=== PATIENT | male | born 1975 | race African-American/Black ===

== ENCOUNTER 2018-09-04 09:34 | Emergency (ER) | payer OTHER ==
[~2018-09-04] VITALS: Ht 182.9 cm; Wt 94.3 kg
[2018-09-04] MEDS ORDERED: NORCO 5-325 TA1 EACH ORAL (10:09)
[2018-09-04] MEDS ORDERED: CYCLOBENZAPRINE10 MG ORAL (10:09)
[2018-09-04] MEDS ORDERED: IBUPROFEN600 MG ORAL (10:09)
[2018-09-04 10:14] VITALS: BP 142/92
[2018-09-04 10:16] VITALS: BP 142/92
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
== END 2018-09-04 10:18 | disposition home or self-care (01) ==
LOC: EMR 10:15
DX: S86.912A Strain of unspecified muscle(s) and tendon(s) at lower leg level, left leg, initial encounter (principal); V43.52XA Car driver injured in collision with other type car in traffic accident, initial encounter; Y92.410 Unspecified street and highway as the place of occurrence of the external cause
CPT/HCPCS: 99282

== ENCOUNTER 2018-09-15 19:43 | Emergency (ER) | payer OTHER ==
[~2018-09-15] VITALS: Ht 182.9 cm; Wt 94.3 kg
[~2018-09-15 19:43] MED LIST: CYCLOBENZAPRINE10 MG ORAL; IBUPROFEN600 MG ORAL; NORCO 5-325 TA1 EACH ORAL
[2018-09-15 20:25] VITALS: BP 127/90
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
[2018-09-15] MEDS ORDERED: Ketorolac 30mg Inj IM ONE (21:00)
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
[2018-09-15] MEDS ORDERED: ROBAXIN500 MG PO (21:39)
[2018-09-15] MEDS ORDERED: TRAMADOL HCL50 MG ORAL (21:39)
[2018-09-15 21:45] VITALS: BP 122/88
--- NOTE | 2018-09-15 21:45 | NUR ---
ED Nurse Note: Pt cleared DC by CECIL Vizcarra. Pt is A/Ox4, VSS, DC instruction and prescriptions given, pt verbalized understanding. ID wristband removed. All belongings given to pt. Pt ambulated out of ER with steady gait.
== END 2018-09-15 21:45 | disposition home or self-care (01) ==
LOC: EMR 21:08
DX: S39.012A Strain of muscle, fascia and tendon of lower back, initial encounter (principal); X58.XXXA Exposure to other specified factors, initial encounter; Y92.9 Unspecified place or not applicable; Z88.0 Allergy status to penicillin
CPT/HCPCS: 72020; 96372; 99283; J1885

== ENCOUNTER 2019-03-04 08:57 | Emergency (ER) | payer OTHER ==
[~2019-03-04] VITALS: Ht 182.9 cm; Wt 95.7 kg
[~2019-03-04 08:57] MED LIST changes: +ROBAXIN500 MG PO; +TRAMADOL HCL50 MG ORAL
[2019-03-04 08:59] VITALS: BP 154/101
[2019-03-04] MEDS ORDERED: NKM (09:03)
--- NOTE | 2019-03-04 09:09 | NUR ---
ED Nurse Note: Patient walked into ED c/o blood in the urine since this morning. patient is alert awake x4 ambulatory, breathing unlabored and even.
--- NOTE | 2019-03-04 09:17 | NUR ---
ED Nurse Note: UA SENT TO LAB
[2019-03-04 09:40] LABS: APPEARANCE,URINE CLEAR; BILIRUBIN, URINE NEGATIVE (NEGATIVE); GLUCOSE, URINE (UA) NEGATIVE (NEGATIVE); KETONES,URINE 1+ (NEGATIVE); LEUKOCYTE ESTERASE ,URINE 1+ (NEGATIVE); NITRITE,URINE NEGATIVE (NEGATIVE); PH,URINE 6 (4.5-8.0); PROTEIN,URINE 1+ (NEGATIVE); UROBILINOGEN,URINE 4 MG/DL (0.0-1.0)
[2019-03-04 09:45] LABS: COLOR,URINE YELLOW
--- NOTE | 2019-03-04 10:03 | Emergency Room Report ---
History of Present Illness General Chief Complaint: Male Urogenital Problems Source: Patient Present Illness [facility] Patient 43-year-old male presents after increased hematuria noticed this morning. Patient reports having some mild suprapubic pain. He denies any dysuria. He did not have any fever. He had not been vomiting. He denies any recent trauma. He denies any flank pain. Patient states that he is a smoker. He denies any prior history of hematuria in the past. Allergies: Coded Allergies: AMPICILLIN (Verified Allergy, Unknown, 09/15/18) Patient History Past Medical History: see triage record Reviewed Nursing Documentation: PMH: Agreed; PSxH: Agreed Nursing Documentation-PMH Past Medical History: No Stated History Review of Systems All Other Systems: negative except mentioned in HPI Physical Exam Vital Signs Date Time Temp Pulse Resp B/P (MAP) Pulse Ox O2 Delivery O2 Flow Rate FiO2 03/04/19 08:59 98.4 71 18 154/101 (118) 97 Room Air Sp02 EP Interpretation: reviewed, normal General Appearance: normal inspection, well appearing, no apparent distress, alert, GCS 15 Head: atraumatic ENT: normal ENT inspection, hearing grossly normal, normal voice Neck: normal inspection, full range of motion, supple, no bony tend Respiratory: normal inspection, lungs clear, normal breath sounds, no respiratory distress, no retraction, no wheezing Cardiovascular #1: regular rate, rhythm, no edema Gastrointestinal: normal inspection, normal bowel sounds, non tender, soft, no guarding, no hernia Genitourinary: no CVA tenderness Musculoskeletal: normal inspection, back normal, normal range of motion Neurologic: normal inspection, alert, oriented x3, responsive, patient observation assistant III-XII nml as tested, speech normal Psychiatric: normal inspection, judgement/insight normal, mood/affect normal Medical Decision Making Diagnostic Impression: Primary Impression: Hematuria Last Vital Signs Date Time Temp Pulse Resp B/P (MAP) Pulse Ox O2 Delivery O2 Flow Rate FiO2 03/04/19 08:59 98.4 71 18 154/101 97 Room Air Referrals: CHRISTY BUTLER,REFERRING (PCP) Miguel Vasquez MD Mar 04, 2019 10:03
[2019-03-04] MEDS ORDERED: Bactrim-DS 1 tab ORAL ONE (10:15)
--- NOTE | 2019-03-04 11:57 | Diagnostic Imaging Report ---
Indication: Hematuria, suprapubic pain Technique: Spiral acquisitions obtained through the abdomen and pelvis. No oral contrast utilized, per emergency room physician request No IV contrast utilized, per referring physician request.. Multiplanar reconstructions were generated. Total dose length product 944.38 mGycm. CTDIvol(s) 17.25 mGy. Dose reduction achieved using automated exposure control Comparison: None Findings: Lack of IV contrast limits assessment of the renal parenchyma. 5.3 cm cyst comes off of the upper pole of the left kidney. No gross renal parenchymal mass or cyst elsewhere. No renal or ureteral calculi, hydronephrosis, or hydroureter demonstrated. The bladder is unremarkable. Lack of IV contrast limits assessment of the other solid organs. The gallbladder contains a stone within the neck. No biliary ductal dilatation. The liver is grossly unremarkable. The pancreas, spleen, adrenals are all unremarkable. No retroperitoneal or mesenteric mass or adenopathy. No pelvic mass or adenopathy. Lack of enteric contrast limits assessment of the GI tract. There are scattered colonic diverticula. No evidence of diverticulitis. The appendix is normal. No small bowel distention. No free or loculated intraperitoneal gas or fluid is evident. Included lung bases are clear. The bones are unremarkable. Impression: No acute abnormality No findings to explain stated clinical history of hematuria and suprapubic pain demonstrated. Colonic diverticulosis coli diverticulosis. No evidence of diverticulitis Cholelithiasis Incidental finding left upper pole renal cyst The CT scanner at [facility] is accredited by the [employer] and the scans are performed using protocols designed to limit radiation exposure to as low as reasonably achievable to attain images of sufficient resolution adequate for diagnostic evaluation.
[2019-03-04] MEDS ORDERED: BACTRIM DS TAB1 EAC1 ORAL (12:44)
[2019-03-04 12:55] VITALS: BP 154/101
--- NOTE | 2019-03-04 12:56 | NUR ---
ER DISCHARGE NOTE: Patient is cleared to be discharged per ERMD DR CARDOZO, pt is aox4, on room air, with stable vital signs. pt was given dc and prescription instructions, pt was able to verbalize understanding, pt id band removed without complications. pt is able to ambulate with steady gait. pt took all belongings.
== END 2019-03-04 12:55 | disposition home or self-care (01) ==
LOC: EMR 09:26
DX: R31.9 Hematuria, unspecified (principal); Z88.0 Allergy status to penicillin
CPT/HCPCS: 74176; 81003; 99284

== ENCOUNTER 2019-03-14 19:04 | Emergency (ER) | payer OTHER ==
[~2019-03-14] VITALS: Ht 182.9 cm; Wt 94.8 kg
[~2019-03-14 19:04] MED LIST changes: +BACTRIM DS TAB1 EAC1 ORAL; +NKM
--- NOTE | 2019-03-14 19:18 | NUR ---
ED Nurse Note: Walk-in patient presents with complaints of gross hematuria. Currently reports no pain.
--- NOTE | 2019-03-14 19:26 | Emergency Room Report ---
History of Present Illness General Chief Complaint: Male Urogenital Problems Source: Patient Present Illness HPI Patient presents with complaints of evidence of passing blood clot while urinating This happened just prior to arrival Denies any pain or discomfort denies any flank pain Denies any fevers or chills denies any chest pain or shortness of breath Patient was here recently had CT imaging which did not show any obvious acute pathology urine sample has shown a small amount of blood Patient has not had a chance to follow-up as outpatient yet Denies any trauma to the region Patient is sexually active with one partner denies any dysuria or frequency denies any other discharge denies any testicular pain Allergies: Coded Allergies: AMPICILLIN (Verified Allergy, Unknown, 09/15/18) Patient History Past Medical History: see triage record Reviewed Nursing Documentation: PMH: Agreed; PSxH: Agreed Nursing Documentation-PMH Past Medical History: No Stated History Review of Systems All Other Systems: negative except mentioned in HPI Physical Exam Vital Signs Date Time Temp Pulse Resp B/P (MAP) Pulse Ox O2 Delivery O2 Flow Rate FiO2 03/14/19 19:10 98.2 71 14 159/90 (113) 95 Room Air Sp02 EP Interpretation: reviewed, normal General Appearance: well appearing, no apparent distress Head: normocephalic, atraumatic Eyes: bilateral eye PERRL, bilateral eye EOMI ENT: hearing grossly normal, normal pharynx, TMs + canals normal, uvula midline Neck: full range of motion, supple, no meningismus, no bony tend Respiratory: lungs clear, normal breath sounds, no rhonchi, no respiratory distress, no retraction, no accessory muscle use Cardiovascular #1: normal peripheral pulses, regular rate, rhythm, no edema, no gallop, no JVD, no murmur Gastrointestinal: normal bowel sounds, non tender, soft, no mass, no organomegaly, non-distended, no guarding, no hernia, no pulsatile mass, no rebound Genitourinary: no CVA tenderness Musculoskeletal: normal inspection Neurologic: oriented x3, responsive, 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 nml as tested, motor strength/ tone normal, sensory intact Psychiatric: mood/affect normal Skin: no rash Lymphatic: normal inspection, no adenopathy Medical Decision Making Diagnostic Impression: Primary Impression: Hematuria ER Course Given the patient's history presentation exam multiple differentials and consideration including but not limited to kidney stone, bladder cancer, renal mass Patient's previous visit is reviewed and CT imaging was obtained previously On this visit blood work is evaluated Patient is able to urinate denies any pressure or discomfort denies any discharge He reports clearing of the urine of blood in between episodes and denies any difficulty urinating at this time Blood work is appropriate patient's previous CT imaging did not show any obvious acute pathology Patient's next step in evaluation would best be with urology follow-up and likely cystoscopy for further evaluation I discussed the importance of this with the patient if he has any other discomfort difficulty urinating Or any other complaints he will return to the ER more emergently otherwise requires urgent close follow-up he was provided a copy of his blood work and CT imaging and will follow closely Labs Test 03/14/19 19:25 White Blood Count 7.7 K/UL (4.8-10.8) Red Blood Count 4.54 M/UL (4.70-6.10) Hemoglobin 12.9 G/DL (14.2-18.0) Hematocrit 38.0 % (42.0-52.0) Mean Corpuscular Volume 84 FL (80-99) Mean Corpuscular Hemoglobin 28.3 PG (27.0-31.0) Mean Corpuscular Hemoglobin Concent 33.8 G/DL (32.0-36.0) Red Cell Distribution Width 12.8 % (11.6-14.8) Platelet Count 335 K/UL (150-450) Mean Platelet Volume 4.6 FL (6.5-10.1) Neutrophils (%) (Auto) 42.6 % (45.0-75.0) Lymphocytes (%) (Auto) 44.5 % (20.0-45.0) Monocytes (%) (Auto) 8.9 % (1.0-10.0) Eosinophils (%) (Auto) 1.8 % (0.0-3.0) Basophils (%) (Auto) 2.2 % (0.0-2.0) Sodium Level 142 MMOL/L (136-145) Potassium Level 3.6 MMOL/L (3.5-5.1) Chloride Level 106 MMOL/L (98-107) Carbon Dioxide Level 28 MMOL/L (21-32) Anion Gap 8 mmol/L (5-15) Blood Urea Nitrogen 11 mg/dL (7-18) Creatinine 1.0 MG/DL (0.55-1.30) Estimat Glomerular Filtration Rate > 60 mL/min (>60) Glucose Level 84 MG/DL (74-106) Calcium Level 8.9 MG/DL (8.5-10.1) CT/MRI/US Diagnostic Results CT/MRI/US Diagnostic Results : Impression CT abdomen pelvis from previous visitImpression: No acute abnormality No findings to explain stated clinical history of hematuria and suprapubic pain demonstrated. Colonic diverticulosis coli diverticulosis. No evidence of diverticulitis Cholelithiasis Incidental finding left upper pole renal cyst Last Vital Signs Date Time Temp Pulse Resp B/P (MAP) Pulse Ox O2 Delivery O2 Flow Rate FiO2 03/14/19 19:10 98.2 71 14 159/90 (113) 95 Room Air Status: improved Disposition: HOME, SELF-CARE Condition: Improved Additional Instructions: Patient is provided with the discharge instructions notified to follow up with primary doctor in the next 2-3 days otherwise return to the er with any worsening symptoms. Please note that this report is being documented using [employer] technology. This can lead to erroneous entry secondary to incorrect interpretation by the dictating instrument. Taqueria House DO Mar 14, 2019 19:26
[2019-03-14 19:33] VITALS: BP 159/90
--- NOTE | 2019-03-14 19:33 | NUR ---
ED Nurse Note: Blood drawn and sent down to lab. Patient resting comfortably with no complaints of pain at this time.
[2019-03-14 19:40] LABS: BASOPHILS % (AUTO) 2.2 % (0.0-2.0); EOSINOPHILS % (AUTO) 1.8 % (0.0-3.0); HEMOGLOBIN 12.9 G/DL (14.2-18.0); LYMPHOCYTES % (AUTO) 44.5 % (20.0-45.0); MEAN CORPUSCULAR VOLUME 84 FL (80-99); MONOCYTES % (AUTO) 8.9 % (1.0-10.0); NEUTROPHILS % (AUTO) 42.6 % (45.0-75.0); PLATELET COUNT 335 K/UL (150-450); RED BLOOD COUNT 4.54 M/UL (4.70-6.10); RED CELL DISTRIBUTION WIDTH 12.8 % (11.6-14.8); WHITE BLOOD COUNT 7.7 K/UL (4.8-10.8)
[2019-03-14 20:09] LABS: ANION GAP 8 mmol/L (5-15); BLOOD UREA NITROGEN 11 mg/dL (7-18); CALCIUM 8.9 MG/DL (8.5-10.1); CARBON DIOXIDE 28 MMOL/L (21-32); CHLORIDE 106 MMOL/L (98-107); POTASSIUM 3.6 MMOL/L (3.5-5.1); SODIUM 142 MMOL/L (136-145)
--- NOTE | 2019-03-14 20:34 | NUR ---
ED Nurse Note: Patient is relaxing, no complaints of pain. Will continue to monitor.
[2019-03-14 21:01] VITALS: BP 159/90
--- NOTE | 2019-03-14 21:01 | NUR ---
ED Nurse Note: Patient cleared for discharge,Patient verbalized understanding of discharge instructions. Patient ID band removed. Patient A&Ox4, ambulatory with steady gait, and no complaints of pain.
== END 2019-03-14 21:01 | disposition home or self-care (01) ==
LOC: EMR 19:45
DX: R31.9 Hematuria, unspecified (principal); Z88.0 Allergy status to penicillin
CPT/HCPCS: 36415; 80048; 85025; 99283